=== PATIENT | female | born 1975 | race Caucasian/White ===

== ENCOUNTER 2017-12-22 12:49 | Emergency (ER) | payer MEDICAID ==
[~2017-12-22 12:49] MED LIST: FERROUS SULFAT325 MG PO; IBUPROFEN600 MG PO; MOTRIN600 MG PO; NORCO 10/325 TA1 TA1 PO; PERCOCET 5-3251 TAB PO; PERCOCET 5/3251 TA1 PO; PRENATAL COMPLE1 TAB PO; ZOFRAN4 MG PO
[2017-12-22 13:00] VITALS: Ht 180.3 cm
[2017-12-22 13:49] LABS: BASOPHILS 0.3 % (0-2); EOSINOPHILS 1.8 % (0-7); HEMOGLOBIN 13.1 g/dL (12-16); IMMATURE GRANULOCYTES 0.2 % (0-5); LYMPHOCYTES 11.6 % (15-50); MCH 30.2 pg (26.0-34.0); MCHC 33.6 g/dL (31.0-37.0); MCV 89.9 fL (80.0-100.0); MEAN PLATELET VOLUME 10.2 fL (7.4-10.4); MONOCYTES 8.1 % (2-11); RBC 4.34 10x6/uL (4.00-5.40); RDW 13.5 % (11.5-14.5); WBC 10.8 10x3/uL (4.8-10.8)
[2017-12-22 13:58] LABS: ALBUMIN 3.3 g/dL (3.4-5.0); ALKALINE PHOSPHATASE 87 U/L (46-116); ALT (SGPT) 16 U/L (10-68); AMYLASE - SERUM 34 U/L (25-115); BILIRUBIN - TOTAL 0.36 mg/dL (0.2-1.3); CALC OSMOLALITY 276 mosm/kg (275-300); CALCIUM 8.9 mg/dL (8.5-10.1); CARBON DIOXIDE 28.7 mmol/L (21.0-32.0); CHLORIDE - SERUM 105 mmol/L (98-107); CREATININE - SERUM 0.6 mg/dL (0.6-1.3); GLUCOSE 103 mg/dL (74-106); LIPASE 75 U/L (73-393); POTASSIUM - SERUM 3.8 mmol/L (3.5-5.1); PROTEIN - SERUM 7.5 g/dL (6.4-8.2); SODIUM 139 mmol/L (136-145); UREA NITROGEN 9 mg/dL (7-18); eGFR NON AFRICAN AMERICAN > 90 mL/min (90-120)
[2017-12-22 14:37] LABS: PLATELET COUNT 263 10x3/uL (130-400)
[2017-12-22 14:44] LABS: APPEARANCE CLEAR (CLEAR); BILIRUBIN NEGATIVE (NEGATIVE); COLOR YELLOW (YELLOW); GLUCOSE NEGATIVE (NEGATIVE); KETONE NEGATIVE (NEGATIVE); NITRITE NEGATIVE (NEGATIVE); PROTEIN NEGATIVE (NEGATIVE); UROBILINOGEN NORMAL (NORMAL)
[2017-12-22] MEDS ORDERED: ZOFRAN ODT4 MG/UDTAB PO (19:12)
[2017-12-22] MEDS ORDERED: VOLTAREN75 MG PO (19:12)
[2017-12-22 19:28] VITALS: BP 129/74
== END 2017-12-22 19:28 | disposition home or self-care (01) ==
LOC: D.ER 12:49
PROVIDERS: Family Medicine
DX: K80.80 Other cholelithiasis without obstruction (principal); R11.2 Nausea with vomiting, unspecified

== ENCOUNTER → 2018-01-13 20:43 | Outpatient (CLI) | payer MEDICAID ==
[~2018-01-13 20:43] MED LIST changes: +HYDROCODON-ACE1 EAC7 PO; +VOLTAREN75 MG PO; +ZOFRAN ODT4 MG/UDTAB PO
== END | disposition home or self-care (01) ==
LOC: D.MAMMO 14:00
DX: Z12.31 Encounter for screening mammogram for malignant neoplasm of breast (principal)

== ENCOUNTER 2018-03-03 08:10 | Day surgery (SDC) | payer MEDICAID ==
[2018-03-02 10:44] LABS: HEMATOCRIT 38.4 % (36.0-48.0); MCH 30.7 pg (26.0-34.0); MCHC 33.9 g/dL (31.0-37.0); MCV 90.8 fL (80.0-100.0); RBC 4.23 10x6/uL (4.00-5.40); WBC 5.8 10x3/uL (4.8-10.8)
[~2018-03-03] VITALS: Ht 180.3 cm; Wt 104.3 kg
--- NOTE | ~2018-03-03 | OP ---
PATIENT NAME: MONO RODRIGEZ [facility] MEDICAL RECORD: [id number] :75 LOCATION:D.OPS ADMISSION DATE: SURGEON: MAKENNA HOOVER MD DATE OF OPERATION: 03/03/2018 PREOPERATIVE DIAGNOSIS: Symptomatic gallstones. POSTOPERATIVE DIAGNOSES: Symptomatic gallstones with dense scarring in the triangle of Calot wall, also hepatomegaly, central abdominal adhesions and left-sided abdominal adhesions of uncertain etiology. PROCEDURES: 1. Laparoscopic cholecystectomy. 2. Intraoperative cholangiography without immediate surgeon interpretation. 3. A 14-gauge core needle liver biopsies. SURGEON: Makenna Hoover MD AWARD MACHINE OPERATOR: None. BLOOD LOSS: Minimal. ANESTHESIA: General. COMPLICATIONS: None. The risks, possible complications, and alternatives to procedure were explained to the patient. She elects to proceed. Discussion specifically included, but was not limited to, bleeding requiring emergency reoperation, infection, intestinal injury. The indication for liver biopsy was hepatomegaly. OPERATIVE COURSE: The patient was conveyed the operating room electively on 03/03/2018. General anesthesia was induced by the anesthesia staff. The abdomen was sterilely prepped and draped. A small skin emilia was accomplished in left upper quadrant. A Veress needle was inserted through the skin emilia into the peritoneal cavity. CO2 insufflation was begun. Once a sufficient pneumoperitoneum had been achieved, a 5-mm trocar was inserted through this incision in the right upper quadrant. Under direct internal vision utilizing a television camera, another 5-mm trocar was inserted far laterally in the right upper quadrant. Significantly dense central and left-sided abdominal adhesions were noted. An incision was accomplished within the umbilicus. I attempted to insert a 12-mm trocar; however, this area was really undermined with a lot of adhesions. Utilizing the endoscopic lacho, I released some of these adhesions, but still could not safely place a 12-mm trocar at the umbilicus. I was able to clear away enough room to perform a cholecystectomy in the left upper quadrant however. A 12-mm trocar was inserted in the right periumbilical area. A 5-mm trocar was inserted in the left upper quadrant. During insertion of the Veress needle and all trocars, there appeared to have been no injury to the bowels, any intraperitoneal or retroperitoneal structures. Under laparoscopic guidance, I percutaneously accessed the right upper quadrant utilizing a 14-gauge core needle liver biopsy device. Cores were obtained over the convexity of the liver. The biopsy sites were made hemostatic with OPERATIVE REPORT [id number] MONO RODRIGEZautchristiana. I then advanced a cholangiogram trocar. I punctured the fundus of the gallbladder. I aspirated bile. I then injected dye. Real time cholangiogram was performed. This was sent to the radiologist for interpretation. I aspirated bile and removed the cholangiogram trocar. The gallbladder was grasped and retracted cephalad. The infundibulum was grasped and retracted laterally. Blunt dissection was begun in the triangle of Calot. This was difficult due to dense adhesions and the numerous gallstones including one that was impacted in the infundibulum. I performed a dome down dissection. In order to obtain better purchase on the gallbladder, which was very lengthy. I advanced a PDS Endoloop and I endolooped the gallbladder just above the infundibulum. Blunt dissection was continued in the triangle of Calot. I was able to dissect out the cystic duct. Clips were placed in the cystic duct as well as the cystic artery. These structures were clipped multiply and divided between clips. The gallbladder was then excised from its bed in the liver. There was spillage of one very large stone. The gallbladder was placed within a bag retrieval device and was withdrawn through the right periumbilical incision. The 12-mm trocar was replaced. I advanced another endoscopic retrieval bag and retrieved the single gallstone. No other gallstones were noted to have fallen out during the dissection. I irrigated and aspirated the right upper quadrant. There was no bleeding even at low pressure of 8. The 12-mm trocar was removed. Utilizing the Esvin-Jose suture closure device and 0 Vicryl sutures, the muscle and fascia was closed at this right 12-mm periumbilical site. All the trocars were removed and the abdomen desufflated. The skin incisions were closed with interrupted intracuticular 3-0 Vicryl except at the umbilicus where the umbilical skin was closed with interrupted 4-0 Vicryl Rapide sutures. The patient was then extubated and conveyed to the post-anesthesia care unit where she was in stable condition. Due to her need for IV narcotic analgesia, the patient is going to require an observation bed overnight and hopefully she can be dismissed home in the morning. TRANSINT:[id number] Voice Confirmation ID: [id number] DOCUMENT ID: [id number] MAKENNA HOOVER MD at 1953 CC: MILAGROS GOODEN [id number] DICTATION DATE: 03/03/18 1627 DOG SITTER: 03/03/18 1730 [facility] 03/04/[address] [facility] [address] [id number]
[~2018-03-03 08:10] MED LIST changes: -HYDROCODON-ACE1 EAC7 PO
[2018-03-03 09:17] VITALS: BP 120/77; BMI 32.8
[2018-03-03 09:21] VITALS: BP 120/77; BMI 32.8
[2018-03-03 10:40] LABS: HCG URINE NEGATIVE (NEGATIVE)
[2018-03-03 17:51] VITALS: BP 104/55
[2018-03-03 18:27] VITALS: BP 107/54; Ht 180.3 cm; Wt 104.3 kg
[2018-03-04 05:23] VITALS: BP 101/61
[2018-03-04 06:18] LABS: BASOPHILS 0.2 % (0-2); EOSINOPHILS 0 % (0-7); HEMATOCRIT 36.7 % (36.0-48.0); HEMOGLOBIN 12.1 g/dL (12-16); IMMATURE GRANULOCYTES 0.3 % (0-5); LYMPHOCYTES 6.4 % (15-50); MCH 30.4 pg (26.0-34.0); MCV 92.2 fL (80.0-100.0); MEAN PLATELET VOLUME 10.6 fL (7.4-10.4); MONOCYTES 4.9 % (2-11); NEUTROPHILS 88.2 % (40-80); PLATELET COUNT 254 10x3/uL (130-400); RBC 3.98 10x6/uL (4.00-5.40)
[2018-03-04 06:30] LABS: WBC 11.9 10x3/uL (4.8-10.8)
[2018-03-04 06:39] LABS: ALBUMIN 2.9 g/dL (3.4-5.0); ALKALINE PHOSPHATASE 80 U/L (46-116); ALT (SGPT) 38 U/L (10-68); BILIRUBIN - TOTAL 0.29 mg/dL (0.2-1.3); CALC OSMOLALITY 276 mosm/kg (275-300); CALCIUM 7.7 mg/dL (8.5-10.1); CARBON DIOXIDE 20.6 mmol/L (21.0-32.0); CHLORIDE - SERUM 104 mmol/L (98-107); CREATININE - SERUM 0.7 mg/dL (0.6-1.3); MAGNESIUM - SERUM 1.8 mg/dL (1.8-2.4); PHOSPHOROUS 2.2 mg/dL (2.5-4.9); POTASSIUM - SERUM 4.4 mmol/L (3.5-5.1); PROTEIN - SERUM 6.6 g/dL (6.4-8.2); SODIUM 138 mmol/L (136-145); UREA NITROGEN 8 mg/dL (7-18); eGFR NON AFRICAN AMERICAN > 90 mL/min (90-120)
[2018-03-04 06:40] LABS: GLUCOSE 153 mg/dL (74-106)
[2018-03-04 09:03] VITALS: BP 98/62
[2018-03-04] MEDS ORDERED: HYDROCODON-ACE1 EAC7 PO (10:32)
== END 2018-03-04 11:50 | disposition home or self-care (01) ==
LOC: D.MS 08:10 → D.OPS 08:10 → D.MS 17:21 → D.OPS 03-04 11:50
PROVIDERS: Anesthesiology; Surgery
DX: K80.18 Calculus of gallbladder with other cholecystitis without obstruction (principal); K82.8 Other specified diseases of gallbladder; K76.0 Fatty (change of) liver, not elsewhere classified; K66.0 Peritoneal adhesions (postprocedural) (postinfection); Z01.812 Encounter for preprocedural laboratory examination

== ENCOUNTER 2019-11-12 14:58 | Emergency (ER) | payer MEDICAID ==
[~2019-11-12] VITALS: Ht 180.3 cm; Wt 104.5 kg
[~2019-11-12 14:58] MED LIST changes: +HYDROCODON-ACE1 EAC7 PO
[2019-11-12] MEDS ORDERED: CLINDAMYCIN HC300 MG PO (15:03)
[2019-11-12] MEDS ORDERED: AUGMENTIN 875-11 TAB PO (15:03)
[2019-11-12 15:08] VITALS: Ht 180.3 cm; Wt 104.5 kg
[2019-11-12] MEDS ORDERED: NAPROSYN500 MG PO (16:13)
[2019-11-12 16:22] VITALS: BP 126/74
== END 2019-11-12 16:22 | disposition home or self-care (01) ==
LOC: D.ER 14:58
DX: S01.21XA Laceration without foreign body of nose, initial encounter (principal); W22.8XXA Striking against or struck by other objects, initial encounter; Y93.9 Activity, unspecified; Y92.9 Unspecified place or not applicable; K21.9 Gastro-esophageal reflux disease without esophagitis